=== PATIENT | male | born 1980 | race Two or more races ===

== ENCOUNTER 2024-07-27 02:51 | Emergency (ER) | payer MEDICAID, SELFPAY ==
[2024-07-27] VITALS (12 sets, daily range): BP systolic 72–188; BP diastolic 53–122; PULSE 65–93; RESP 14–19; TEMP 36.5–36.8; O2SAT 98–100; BMI 19.5
--- NOTE | 2024-07-27 03:33 | PD.EDSUICD ---
ED Psych RME/HPI General Chief Complaint: Suicidal Stated Complaint: MENTAL EVALUATION Time Seen by Provider: 07/27/24 03:36 Arrival date/time: 07/27/24 02:51 Limitations: no limitations RME / HPI RME / HPI Narrative: Dr. Matthew's Main ED Evaluation: 43-year-old brought in by police on a 5150. By report the patient was in an online chat and stated that he might want to kill himself . PD was called for a welfare check and patient was brought to the emergency department. Related Data Home Medications ?Medication ?Instructions ?Recorded ?Confirmed No Known Home Medications 07/27/24 07/27/24 Allergies Allergy/AdvReac Type Severity Reaction Status Date / Time No Known Allergies Allergy Verified 04/06/23 08:41 Review of Systems Review of Systems Systems Reviewed: All systems reviewed, normal except as documented Past Medical History Past Medical History CARDIAC: Positive Hypercholesterolemia and Hypertension; Negative Cardiac Disorders or Congestive Heart Failure RESPIRATORY: Negative Chronic Obstructive Pulmonary Disease (COPD) or Asthma GENITOURINARY: Negative Renal Disease ENDOCRINE: Negative Diabetes Mellitus Type 1 or Diabetes Mellitus Type 2 HEMATOLOGIC: Negative Sickle Cell Disease Social History SMOKING STATUS: Never smoker ED Exam General Limitations: Present no limitations General appearance: Present alert and in no apparent distress Head Head exam: Present atraumatic Eye Eye exam: Present normal appearance, PERRL and EOMI ENT ENT exam: Present normal exam, normal oropharynx and mucous membranes moist Neck Neck exam: Present normal inspection, full ROM and trachea midline Chest Chest inspection: Present normal inspection and symmetric chest wall rise Respiratory Respiratory exam: Present normal lung sounds bilaterally Cardiovascular Cardiovascular exam: Present regular rate, normal rhythm and normal heart sounds Abdominal Exam Abdominal exam: Present soft and normal bowel sounds Extremities Exam Extremities exam: Present normal inspection and full ROM Back Exam Back exam: Present normal inspection and full ROM Neurological Exam Neurological exam: Present alert, oriented X3 and CN II-XII intact Psychiatric Psychiatric exam: Present normal affect and normal mood Skin Skin exam: Present warm, dry, intact and normal color Course Course Course Narrative: 0600: Care signed out to Dr. Willams (emergency physician). Past medical, surgical, social and family history reviewed. Vitals and home medications reviewed. Results and treatment plan discussed. They will assume the care of the patient at this time and will follow the patient, pending medical clearance for crisis evaluation. Quality Measures none Orders Category Date Time Status Diet Regular Diet 07/27/24 Breakfast Active Alcohol, Urine Stat Lab 07/27/24 03:25 Ordered CMP [Comprehensive Metabolic Panel] Stat Lab 07/27/24 05:04 Ordered Drug Screen,Urine Stat Lab 07/27/24 03:25 Ordered Urinalysis Stat Lab 07/27/24 03:25 Ordered Vital Signs Vital signs: Vital Signs Temperature 97.7 F 07/27/24 03:00 Pulse Rate 87 07/27/24 03:00 Respiratory Rate 16 07/27/24 03:00 Blood Pressure 188/117 H 07/27/24 03:00 Pulse Oximetry (%) 100 07/27/24 03:00 Oxygen Delivery Method Room Air 07/27/24 03:00 Psych MDM Narrative MDM Narrative:: 43-year-old male 5154 SI statements. Patient data External records reviewed:: [facility] previous records (Per chart review, patient has no relevant previous ED visits.) Clinical information provided by:: patient Social determinants that could affect healthcare access:: mental health Patient has the following chronic illnesses:: HTN, HLD How is presenting disease/condition affected by chronic disease/condition?: uneffected by Evaluation data The following diagnostics were reviewed and interpreted by me:: lab results Lab and/or radiology exams considered but not ordered:: none Interpretation Summary: Labs are pending at the time of sign out. Medications / Prescriptions Medications or Prescriptions considered but not ordered:: none Medication administrations:: see above, if any Consultations Consultation(s) initiated? (list below): No Diagnosis Psych Differential Diagnosis: acute psychosis, chronic schizophrenia, suicidal ideation, depression, drug-induced psychotic disorder and acute anxiety Most likely diagnosis given after review of the tests above:: see below Admission Indicated Admission indicated?: not indicated Admission Request Was there a request for admission?: No Disposition Plan Disposition Plan: other (specify) (Signed out to Dr. Willams at 0600 pending medical clearance for crisis evaluation.) Discharge Plan Plan Disposition Comment: Stable at signout Prescriptions/Referrals Prescriptions/Med Rec: No Action No Known Home Medications Problem List Clinical Impression: Suicidal ideation Patient/Caregiver Discharge Instructions Print Language: [place]se
[2024-07-27 05:31] LABS: Collection Type, Urine Clean Catch; Squamous Epithelial Cell,Urine 0 /hpf (0-5)
[2024-07-27 05:34] LABS: Bilirubin,Urine Negative (Negative); Blood,Urine Negative (Negative); Clarity,Urine Clear (Clear/Hazy); Color,Urine Colorless (Lt Yel-Yel); Glucose, Urine Negative (Negative); Ketones,Urine Negative (Negative); Leukocyte Esterase,Urine Negative (Negative); Nitrite,Urine Negative (Negative); Protein,Urine Negative (Neg - Trace); RBC,Urine 1 /hpf (0-3); Specific Gravity,Urine 1.011 (1.001-1.035); Urobilinogen,Urine Negative mg/dL (0.0-1.0); WBC,Urine 1 /hpf (0-5)
[2024-07-27] MEDS: hydrALAZINE HCL 25 MG TABLET PO (05:40)
[2024-07-27 06:06] LABS: Basophils # (Auto) 0.1 Thou/mm3 (0.0-0.2); Basophils % (Auto) 1 % (0-2.5); Eosinophils # (Auto) 0.1 Thou/mm3 (0.0-0.5); Eosinophils % (Auto) 1 % (0-10); Hematocrit 46.1 % (41.0-53.0); Hemoglobin 15.4 g/dL (13.5-16.0); Immature Granulocytes % (Auto) 1 % (0-0); Immature Granulocytes Auto 0.04 Thou/mm3 (0.00-0.00); Lymphocytes # (Auto) 1.6 Thou/mm3 (1.0-4.8); Lymphocytes % (Auto) 19 % (10-50); Mean Corpuscular HGB Conc 33.4 g/dl (31.0-37.0); Mean Corpuscular Hemoglobin 26.9 pg (25.0-35.0); Mean Corpuscular Volume 81 fL (80-100); Monocytes # (Auto) 0.5 Thou/mm3 (0.0-0.8); Monocytes % (Auto) 6 % (0-12); Neutrophils % (Auto) 73 % (37-80); Nucleated Red Blood Cell % 0 /100 WBC (0); Platelet Count 299 Thou/mm3 (140-440); RDW Standard Deviation 42.9 fL (35.1-43.9); Red Blood Count 5.73 Miln/mm3 (4.50-5.90); White Blood Count 8.3 Thou/mm3 (3.8-10.6)
[2024-07-27 06:15] LABS: Alcohol, Urine Negative (Negative); Amphetamine/Methamp Scrn,U Negative (Negative); Barbiturate Screen,Urine Negative (Negative); Benzodiazepines Screen,Urine Negative (Negative); Benzoylecgonine Screen, Ur Negative (Negative); Fentanyl Screen,Urine Negative (Negative); Opiate Screen,Urine Negative (Negative); THC Screen,Urine Negative (Negative)
[2024-07-27 06:31] LABS: Alanine Aminotransferase 15 U/L (10-49); Albumin, Serum 5.5 gm/dL (3.5-5.0); Albumin/Globulin Ratio 1.8 (1.2-2.2); Alkaline Phosphatase 105 U/L (46-116); Anion Gap 8 (7-16); Aspartate Amino Transferase 19 U/L (0-34); BUN/Creatinine Ratio 12 Ratio (12-20); Bilirubin,Total 0.7 mg/dL (0.3-1.2); Blood Urea Nitrogen 12 mg/dL (9-23); Calcium 10.3 mg/dL (8.3-10.6); Calcium (Corrected) 10.3 mg/dL (8.5-10.1); Carbon Dioxide 29.4 mMol/L (20.0-31.0); Chloride 101 mMol/L (98-107); Estimated Creatinine Clearance 71.1 mL/min (>60); Glucose 89 mg/dL (74-106); Osmolality,Calculated 274 (275-295); Potassium 3.6 mMol/L (3.4-5.1); Sodium 138 mMol/L (136-145); Total Protein 8.5 gm/dL (5.7-8.2); eGFR > 60 See Note
--- NOTE | 2024-07-27 06:49 | PD.EDADDENDU ---
Emergency Room Addendum <Aline Strong - Last Filed: 07/27/24 14:01> Addendum Narrative: 0600: Care assumed from Dr. Matthew, the previous shift emergency physician. Past medical, surgical, social and family history reviewed. Vitals and home medications reviewed. I will assume the care of the patient at this time, pending medical clearance for mental health evaluation. Please refer to the emergency department record for history and examination from initial visit.? Nursing notes reviewed by me. Patient was brought in by [facility] on a 5150 hold for suicidal ideation. Vital signs reviewed by me. [facility] medical records reviewed by me. Patient was last evaluated here on 10/26/2023 for blood in stool. No previous psych visits. 0930: Patient became hypotensive, 72/53. Patient received 0.2mg Clonidine at 08:21 am. Ordered for 1L NS bolus. 1105: Blood pressure improved, 128/87. 1300: Blood pressure 87/67, ordered 1L NS bolus. 1330: Repeat blood pressure 113/81. <Ricarda Connors - Last Filed: 07/27/24 16:59> Addendum Narrative: 0600: Care assumed from Dr. Matthew, the previous shift emergency physician. Past medical, surgical, social and family history reviewed. Vitals and home medications reviewed. I will assume the care of the patient at this time, pending medical clearance for mental health evaluation. Please refer to the emergency department record for history and examination from initial visit.? Nursing notes reviewed by me. Patient was brought in by [facility] on a 5150 hold for suicidal ideation. Vital signs reviewed by me. [facility] medical records reviewed by me. Patient was last evaluated here on 10/26/2023 for blood in stool. No previous psych visits. 0930: Patient became hypotensive, 72/53. Patient received 0.2mg Clonidine at 08:21 am. Ordered for 1L NS bolus. 1105: Blood pressure improved, 128/87. 1300: Blood pressure 87/67, ordered 1L NS bolus. 1330: Repeat blood pressure 113/81. 1615: 5150 hold will be rescinded. Patient will be discharged with safety plan in place.
--- NOTE | 2024-07-27 07:00 | PC.NURSE ---
In to assess pt. Pt resting quietly at this time without any complaints. 1-1 sitter at bedside. Plan of care ongoing.
[2024-07-27] MEDS: cloNIDine HCL 0.1 MG TABLET 0.2 MG PO (08:21)
--- NOTE | 2024-07-27 09:30 | EKG_ITS ---
[facility] Test Date: 2024-07-27 Pat Name: LUPILLO DELVALLE Department: Room: - Gender: Male Development Professional: : 1980 Requested By: Herimla Villeda Order Number: [id number] Reading MD: Hermila Villeda Measurements Intervals [place] Rate: 65 P: 38 ME: 128 QRS: 45 QRSD: 82 T: 61 QT: 427 QTc: 447 Interpretive Statements SINUS RHYTHM EARLY REPOLARIZATION [ST ELEVATION WITH NORMALLY INFLECTED T WAVE] Compared to ECG 10/25/2023 15:58:34 Early repolarization now present /store/S0/[id number]/[id number].pdf
--- NOTE | 2024-07-27 09:32 | PC.NURSE ---
PT SLUMPED OVER GURNEY WHILE STANDING UP, PER PATRICIA CINTRON CNA. VS TAKEN; PT HYPOTENSIVE. DR. LAO AT BEDSIDE. VERBAL ORDERS RECEIVED AT THIS TIME.
[2024-07-27] MEDS: SODIUM CHLORIDE 0.9% 1000 ML 1,000 ML 999 ML IV ×2 (09:40→13:10)
--- NOTE | 2024-07-27 11:15 | PC.CC ---
Patient was placed on a 5150-Hold by [facility] for Danger to Self on 07/27/2024 0257. Patient is not medically cleared and will have a mental health evaluation upon being medically cleared.
--- NOTE | 2024-07-27 13:49 | PC.CC ---
Elizabeth KRISHNA met with the patient face to face and informed him and mother, Birgit who is at bedside that patient will be re-evaluated when medically cleared. Patient provided consent for mother to remain in the room as patient is difficult to understand.
--- NOTE | 2024-07-27 16:18 | PC.CC ---
Patient is a 43 year-old male who was placed on a 5150-Hold Danger to Self by [place] [employer] Officer Reese. ASWAlia and DIANE Watts made [id number] contact with patient to complete assessment. ASW?s introduced self, role, and reason for assessment to patient. ASW disclosed limits of confidentiality as well. Patient appeared alert and oriented to self, place, and situation. Patient mood appeared depressed throughout assessment; his behavior appeared disinhibited with flat affect. Patient?s thought process was linear and organized. 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 Patient disclosed he was on a lamine mp speaking to one of his friends and made a comment to him that he was feeling stressed and worried that he might need to go to the hospital. Patient denied ever sending a text message regarding suicidal ideations. Patient denied suicidal and homicidal ideations, visual and auditory hallucinations. Patient denied past suicide attempts. Patient denied past 5150-holds. Patient reports he is not connected to mental health services and does not have a diagnosis. Patient would like to be connected to outpatient mental health services. ASW made contact with patient?s mother, Birgit for collateral information. Per Birgit, patient does not have any mental health history and has never been connected to outpatient mental health services. She reports that patient has been himself and he has been behaving like his normal self. Per Birgit, patient lives with her and she is willing to safety plan with the patient. Upon clinical consultation with Kavitha LO patient?s 5150-hold will be rescinded. Patient and patient?s motherBirgit are willing to safety plan. The safety plan is that patient will go home with Birgit and she will provide extra super vision for the next 72 hours, remove all sharps, medications, and lamine systems from access to the patient. There are no firearms in the home. An outpatient mental health appointment was scheduled for the patient for Monday, July 29, 2024 at 9am with [facility]. ASW provided discharge plan with Dr. Willams, electronic drafter Denise, and DIANE Watts.
== END 2024-07-27 17:00 | disposition home or self-care (01) ==
PROVIDERS: Emergency Medicine; Emergency Provider Emergency Medicine
DX: Z04.6 Encounter for general psychiatric examination, requested by authority (principal); R45.851 Suicidal ideations; I95.9 Hypotension, unspecified; R94.31 Abnormal electrocardiogram [ECG] [EKG]; I10 Essential (primary) hypertension
CPT/HCPCS: 36415; 80053; 80307; 80320; 81001; 85025; 90839; 93005; 96127; 96360; 96361; 99284; J7030; A9270; G0480

== ENCOUNTER → 2024-11-15 | Outpatient (CLI) | payer MEDICAID, SELFPAY ==
--- NOTE | 2024-11-15 08:00 | XR_ITS ---
Examination: CT middle inner ear, without contrast. 2-D coronal reconstructions. 2-D sagittal reconstructions. Date and time of exam: November 15, 2024 at 0742 hours INDICATIONS: Left ear infection beginning 2 years ago CTDI: vol (mGy): 14 DLP: (mGycm):205 Technique: Multiple 1.0 mm axial sections of the middle inner ears bilaterally. High-resolution 64 slice scanner utilized. 2-D coronal reconstructions 2-D sagittal reconstructions Low dose protocols were performed. One or more of the following dose reduction techniques were used; automated exposure control, adjustment of the mA and/or KV according to patient size, use of iterative reconstruction technique. Findings: Axial sections of the right demonstrate moderately reduced mastoid aeration. Jugular fossa and carotid canal do not appear remarkable. No deformity of the ossicles. Porus acusticus internus does not exhibit erosion. Cochlear apparatus unremarkable. Semicircular canals normal. External auditory canal open. Coronal reconstructions demonstrate no erosion of the scutum. No soft tissue mass in the attic or Prussak's space is seen. Ossicular mass intact. Axial sections of the left demonstrate severely reduced mastoid aeration. Fluid in left mastoid air cells Jugular fossa and carotid canal do not appear remarkable. No deformity of the ossicles. Porus acusticus internus does not exhibit erosion. Cochlear apparatus unremarkable. Semicircular canals normal. Left otitis externa Left otitis media Coronal reconstructions demonstrate no erosion of the scutum. There is soft tissue mass in the attic or Prussak's space is seen. Ossicular mass intact. Roof of the mastoid air cells appear intact bilaterally. Extensive opacification left maxillary antrum with sclerotic bone involving the maxillary antra Mild chronic ethmoid sinus disease Impression: Severe chronic left mastoiditis Acute left mastoiditis Left otitis externa Left otitis media There is soft tissue mass in the attic or Prussak's space on the left, clinical correlation advised Severe opacification left maxillary antrum
== END | disposition home or self-care (01) ==
PROVIDERS: Referring Provider Otolaryngology; Visit Provider Otolaryngology
DX: H70.002 Acute mastoiditis without complications, left ear (principal); H70.12 Chronic mastoiditis, left ear; H60.92 Unspecified otitis externa, left ear; H66.92 Otitis media, unspecified, left ear; M79.89 Other specified soft tissue disorders; J34.89 Other specified disorders of nose and nasal sinuses
CPT/HCPCS: 70480

== ENCOUNTER 2024-12-15 08:40 | Day surgery (SDC) | payer MEDICAID, SELFPAY ==
--- NOTE | 2024-12-12 07:00 | EKG_ITS ---
[facility] Test Date: 2024-12-12 Pat Name: LUPILLO DELVALLE Department: Room: - Gender: Male State Fire Marshal: ROWENA : 1980 Requested By: David Mcclelland Order Number: [id number] Reading MD: David Mcclelland Measurements Intervals [place] Rate: 84 P: 60 NE: 129 QRS: 69 QRSD: 77 T: 68 QT: 334 QTc: 395 Interpretive Statements SINUS RHYTHM Compared to ECG 07/27/2024 09:41:05 Early repolarization no longer present /store/S0/[id number]/[id number].pdf
[2024-12-12 09:31] VITALS: BMI 18.6
[2024-12-15] VITALS (8 sets, daily range): BP systolic 104–130; BP diastolic 73–98; PULSE 80–91; RESP 12–20; TEMP 36.4–36.8; O2SAT 96–100; BMI 18.6
[2024-12-15] MEDS: RINGERS LACTATED 1000 ML 1,000 ML 20 ML IV (09:28)
--- NOTE | 2024-12-15 15:46 | PD.SUROPNT ---
Date of Procedure 12/15/24 Pre Op Diagnosis Chronic left mastoiditis Severe mixed hearing loss Post Op Diagnosis Chronic left mastoiditis severe mixed hearing loss Procedure Left canal wall up tympanomastoidectomy with facial nerve monitoring and temporalis fascia grafting Findings Patient had a tympanostomy tube that was obstructed in the posterior inferior quadrant. There is mucoid effusion in the middle ear. Mastoid cavity was very sclerotic with signs of chronic mastoiditis. There is significant chronic mucosal disease as well. The ossicular chain was intact and mobile. There were no signs of cholesteatoma. Horizontal canal and facial nerve are in their normal position. The chorda tympani nerve was not visualized. Procedure Description Indications: This is a 44-year-old male with chronic ear infections in the left ear. He has been treated with antibiotics topical antibiotic drops as well as tympanostomy tubes without resolution of his symptoms. CT scan showed the chronic infection as described above. Patient wished to proceed with surgical intervention. The risk of bleeding infection dizziness tinnitus facial nerve paralysis decreased sense of taste and hearing loss were discussed with them also the potential for further surgery. Patient is aware that this will not provide any significant improvement in his hearing loss. Patient was marked in the preoperative setting and then transferred to the operative suite where he was anesthetized and intubated. Facial nerve monitoring electrodes were placed in the usual fashion for the left ear. Laser precautions were in place as well. Timeout was performed the patient was sterilely prepped and draped. The external canal as well as the postauricular region were injected with 1% lidocaine with 1-100,000 dilution epinephrine. Approximately 7 cc total were used. The canal was irrigated with warm saline solution and suction and the tympanostomy tube removed. Posterior tympanomeatal flap was created the ear was turned forward. Findings were as noted above. Postauricular incision was then created as well as a palva flap. A small piece of temporalis fascia was harvested and pressed and dried. Posterior vascular strip had been created and was held in place with the Heredia retractor. Canal wall up mastoidectomy was then performed with a #6 and #3 cutting burs. The sigmoid sinus was anteriorly displaced inferiorly. Findings of the mastoid was noted above. There was significant amount of mucosal disease in the antral region which was partially removed. This was sent for specimen. The horizontal canal was identified the facial nerve was identified as well and confirmed with the nerve monitor. The mastoid cavity and middle ear were irrigated with warm saline solution. Middle ear was packed with Surgifoam impregnated with Ciprodex. The graft was brought into the field and placed in underlay fashion underneath the posterior half of the tympanic membrane and the posterior canal wall. The tympanic membrane was returned back to its normal position and more Surgifoam was packed on top of that and the posterior vascular strip. The ear was turned back and closed in a multilayer fashion with 4-0 Vicryl and then Dermabond on the skin. The external canal was then visualized with the microscope and filled with double antibiotic ointment. Adaptic and a sterile cottonball were placed in the external meatus. Sterile dressing was then applied. The patient was awakened and taken the recovery room in stable condition Anesthesia GETA Pathology / specimen Other (Mastoid mucosa) Estimated Blood Loss 15 Surgeon David Chiang DO Surgical Staff Operation Date: 12/15/24 10:45 Case Staff Anesthesiologist: Raman Stanley
--- NOTE | 2024-12-15 16:03 | SUR.PHASEI ---
1603: Pt. arrived with oral airway in place, vitals stable, breathing unlabored, no signs of distress, dressing to left ear CDI, no active bleed noted, report received from Aníbal CONTRERAS and MD Stanley.
--- NOTE | 2024-12-15 17:01 | SUR.PHASEII ---
1701: Pt. AAOx4, vitals stable, breathing unlabored, no complaint of pain or nausea, dressing to left ear CDI, no active bleed noted, pt. tolerated sips of water well, gave discharge instructions to the pt. and his ride, both verbalized understanding. Pt. ambulated to wheelchair with steady gait and no assist no complications. pt. left with all personal belongings.
== END 2024-12-15 17:01 | disposition home or self-care (01) ==
PROVIDERS: PCP Family Medicine; Referring Provider Otolaryngology; Visit Provider Otolaryngology
PROC: (CPT 69641; principal; 2024-12-15 10:30)
DX: H70.12 Chronic mastoiditis, left ear (principal); H90.72 Mixed conductive and sensorineural hearing loss, unilateral, left ear, with unrestricted hearing on the contralateral side; Z01.810 Encounter for preprocedural cardiovascular examination
CPT/HCPCS: 69643; 93005; A4217; A4649; J0171; J0690; J1100; J1885; J2250; J2371; J2405; J2704; J3010; J3490; J7040; J7120; A9270